=== PATIENT | female | born 1960 | race African-American/Black ===

== ENCOUNTER 2020-06-18 07:35 | Emergency (ER) | payer MEDICAID, OTHER ==
[~2020-06-18] VITALS: Ht 167.6 cm; Wt 123.0 kg
[2020-06-18 08:11] VITALS: BP 130/78
== END 2020-06-18 08:12 | disposition home or self-care (01) ==
LOC: ER 07:35
DX: R04.0 Epistaxis (principal); J45.909 Unspecified asthma, uncomplicated; Z98.51 Tubal ligation status
CPT/HCPCS: 99281